=== PATIENT | male | born 1965 | race Hispanic/Latino ===

== ENCOUNTER 2017-03-23 07:35 | Emergency (ER) | payer OTHER ==
[2017-03-23 08:04] LABS: Basophils % (Auto) 1.1 % (0.0-1.8); Eosinophils % (Auto) 6.4 % (0.0-4.3); Hematocrit 46.9 % (35.5-45.6); Hemoglobin 15.4 gm/dl (11.8-15.2); Mean Corpuscular HGB Conc 33 % (32-34); Mean Corpuscular Hemoglobin 31 pg (28-32); Mean Corpuscular Volume 94 fl (84-94); Platelet Count 231 K/mm3 (140-440); Red Blood Count 4.98 M/mm3 (3.65-5.03); Red Cell Distribution Width 14.8 % (13.2-15.2); White Blood Count 7.2 K/mm3 (4.5-11.0)
[2017-03-23 08:24] LABS: Anion Gap 22 mmol/L; BUN/Creatinine Ratio 13; Blood Urea Nitrogen 9 mg/dL (9-20); Calcium 8.7 mg/dL (8.4-10.2); Carbon Dioxide 25 mmol/L (22-30); Chloride 95.3 mmol/L (98-107); Glucose 90 mg/dL (75-100); Potassium 4.1 mmol/L (3.6-5.0); Sodium 138 mmol/L (137-145)
[2017-03-23 08:26] LABS: Urine Drugs of Abuse Note Disclamer
[2017-03-23 08:46] LABS: RBC,Urine < 1.0 /HPF (0.0-6.0); WBC,Urine < 1.0 /HPF (0.0-6.0)
[2017-03-23 08:59] LABS: Bilirubin,Urine NEG (Negative); Blood,Urine NEG (Negative); Ketones,Urine NEG (Negative); Leukocyte Esterase,Urine NEG (Negative); Nitrite,Urine NEG (Negative); Protein,Urine <15 mg/dL mg/dL (Negative); Urobilinogen,Urine < 2.0 mg/dL (<2.0)
[2017-03-23] MEDS ORDERED: ATIVAN IV PRN ×2 (09:43)
--- NOTE | 2017-03-23 09:43 | Emergency Department Report ---
HPI - General Chief Complaint: Psych Time Seen by Provider: 03/23/17 08:55 - HPI HPI: This is a 51-year-old male presents to the emergency department with complaint of depression and suicidal ideations. The patient says that he has "lost everything" and has been having trouble with his job, finances, fiance, and his alcohol addiction. He did drink last night but does not appear currently intoxicated. He denies any diagnosed psychiatric history but does have history of some depression and suicidal ideations in the past as well related to his drinking. He does appear as if he would like to get some help with this. He denies any past medical history. He does say that he has some history of withdrawal symptoms from alcohol but has never had delirium tremens. ED Past Medical Hx - Past Medical History Previous Medical History?: No - Surgical History Past Surgical History?: Yes Additional Surgical History: chest tube - Social History Smoking Status: Current Every Day Smoker Substance Use Type: Alcohol - Medications Home Medications: Home Medications Medication Instructions Recorded Confirmed Last Taken Type HYDROcodone/APAP 5-325 [[place] 1 each PO Q6HR PRN #16 tablet 12/31/15 Unknown Rx 5/325] Ibuprofen [Motrin 800 MG tab] 800 mg PO Q8HR PRN #30 tablet 12/31/15 Unknown Rx ED Review of Systems ROS: Stated complaint: ETOH USE, SUICIDAL Other details as noted in HPI Comment: All other systems reviewed and negative Constitutional: denies: chills, fever Eyes: denies: eye pain, eye discharge, vision change ENT: denies: ear pain, throat pain Respiratory: denies: cough, shortness of breath, wheezing Cardiovascular: denies: chest pain, palpitations Gastrointestinal: denies: abdominal pain, nausea, diarrhea Genitourinary: denies: urgency, dysuria Musculoskeletal: denies: back pain, joint swelling, arthralgia Skin: denies: rash, lesions Neurological: denies: headache, weakness, paresthesias Psychiatric: depression, suicidal thoughts. denies: auditory hallucinations, visual hallucinations, homicidal thoughts Physical Exam - Physical Exam Vital Signs: Vital Signs 03/23/17 03/23/17 07:45 09:32 Temperature 97.7 F 98.2 F Pulse Rate 89 104 H Respiratory 20 18 Rate Blood Pressure 111/75 Blood Pressure 112/51 [Right] O2 Sat by Pulse 98 97 Oximetry Physical Exam: GENERAL: The patient is well-developed well-nourished. HENT: Normocephalic. Atraumatic. Patient has moist mucous membranes. EYES: Extraocular motions are intact. Pupils equal reactive to light bilaterally. NECK: Supple. Trachea is midline. CHEST/LUNGS: Clear to auscultation. There is no respiratory distress noted. HEART/CARDIOVASCULAR: Regular. There is no tachycardia. There is no gallop rub or murmur. ABDOMEN: Abdomen is soft, nontender. Patient has normal bowel sounds. There is no abdominal distention. SKIN: Skin is warm and dry. NEURO: The patient is awake, alert, and oriented. The patient is cooperative. The patient has no focal neurologic deficits. The patient has normal speech. MUSCULOSKELETAL: There is no tenderness or deformity. There is no limitation range of motion. There is no evidence of acute injury. PSYCH: Patient has a flat affect. ED Course Vital Signs 03/23/17 03/23/17 07:45 09:32 Temperature 97.7 F 98.2 F Pulse Rate 89 104 H Respiratory 20 18 Rate Blood Pressure 111/75 Blood Pressure 112/51 [Right] O2 Sat by Pulse 98 97 Oximetry ED Medical Decision Making - Lab Data Result diagrams: 03/23/17 07:49 03/23/17 07:49 - Medical Decision Making 51-year-old male with a history of alcoholism presents with some depression and suicidal ideations. Despite his elevated blood alcohol level at this time, the patient does not appear acutely intoxicated. He does have a history of withdrawals but no history of delirium tremens. He will be given IV fluids with banana bag and placed on the withdrawal protocol. He has been made a 1013 secondary to the suicidal ideations. The rest of his labs are mostly unremarkable. We will continue to monitor for any possible serious withdrawal symptoms that would require medical admission but at this time he does appear medically cleared for a psychiatric facility that can handle alcoholism and detox. Vitals stable throughout ED course. - Differential Diagnosis depression, substance abuse, bipolar disorder, schizophrenia Critical Care Time: No Critical care attestation.: If time is entered above; I have spent that time in minutes in the direct care of this critically ill patient, excluding procedure time. ED Disposition Clinical Impression: Alcohol abuse, Suicidal ideations Alcohol dependence Qualifiers: Substance use status: unspecified alcohol-induced disorder Qualified Code(s): F10.29 - Alcohol dependence with unspecified alcohol-induced disorder Depression Qualifiers: Depression Type: unspecified Qualified Code(s): F32.9 - Major depressive disorder, single episode, unspecified Disposition: [id number] PSY HOSP/PSY UNIT Is pt being admited?: No Condition: Stable Time of Disposition: 11:47
[2017-03-23] MEDS: VITAMIN B-1 100 MG, FOLVITE 1 MG, INFUVITE 10 ML in NACL 0.9% 1000 ML 1,000 ML IV ONE ×2 (10:35→15:42)
[2017-03-24] MEDS: ATIVAN IV PRN ×2 (14:44→21:16)
--- NOTE | 2017-03-25 12:24 | Progress Note ---
Subjective - Reason for Consult Consult date: 03/25/17 Reason for consult: Psychiatry Follow-up - Chief Complaint Chief complaint: "I want help" his is a 51-year-old male presents to the emergency department with complaint of depression and suicidal ideations. The original psy consult was completed yesterday on this patient, this is a follow-up. Today patient is calm and cooperative, but withdrawn during the assessment. He stated being "depressed " because he want to stop drinking alcohol (etoh) and life stressors. He stated that he have lost a lot in life, and currently living in a hotel. He stated struggling with suicide thoughts, but denies SI's with a plan. He stated that he been drinking alcohol (etoh) for several years. He stated that he used to drink for recreational use, but now he drink to ease his mind" the past 6 months. He reports times of sadness and being worthless. He stated attending multiple rehab services for alcohol, but relapsed once back in the community. He denies sleep disturbance and a poor appetite. He reports smoking marijuana for recreational use. He denies SI/HI's and AVH's. Mental Status Exam - Vital signs Last Vital Signs Temp 98.1 F 03/24/17 21:17 Pulse 93 H 03/24/17 21:17 Resp 20 03/24/17 21:17 BP 138/92 03/24/17 21:17 Pulse Ox 97 03/24/17 21:17 - Exam Narrative exam: MSE: Appearance: calm, cooperative Behavior: regular eye contact Speech: regular rate and tone Mood: "depressed" withdrawn Affect: flat Thought Process: circumstantial Thought Content: denies SI/HI's and AVH's Motor Activity: ambulatory Cognition: A/O x3 Insight: variable Judgment: variable Assessment and Plan Impression: MDD severe type. Alcohol Use DO. Substance Use DO (marijuana). Today patient is calm and cooperative, but withdrawn during the assessment. Alcohol serum on admission 0.19. Patient experiencing mild to moderate tremors. DDx: R/O Bipolar, R/O Alcohol Induced Mood DO Recommendation/Plan: The initial psy consult will be completed within 24 hours. Evaluate 1013 in 24 hours to determine proper dispo. Continue CIWA. Start Zoloft 50 mg PO daily for depression. Discussed possible suicidality/medication induced wilder with patient reference Zoloft. Discussed with the patient the importance to abstain from alcohol consumption and recreational drug use.
[2017-03-25] MEDS: ZOLOFT PO SCH (12:49)
[2017-03-25] MEDS: ATIVAN IV PRN (22:00)
[2017-03-26] MEDS: ZOLOFT PO SCH (10:28)
--- NOTE | 2017-03-26 10:42 | Progress Note ---
Subjective - Reason for Consult Consult date: 03/26/17 Reason for consult: Psychiatry Follow-up - Chief Complaint Chief complaint: "When can I leave" This is a 51-year-old male presents to the emergency department with complaint of depression and suicidal ideations. Today patient is calm and cooperative during the assessment. He stated that he would attend AA sessions along with outpatient psy/rehab services once discharged. He denies SI/HI's and AVH's. He denies any side effects of his medications. Mental Status Exam - Vital signs Last Vital Signs Temp 97.9 F 03/25/17 22:00 Pulse 98 H 03/25/17 22:00 Resp 18 03/25/17 22:00 BP 142/78 03/25/17 22:00 Pulse Ox 98 03/25/17 22:00 - Exam Narrative exam: MSE: Appearance: calm, cooperative Behavior: regular eye contact Speech: regular rate and tone Mood: "better" Affect: congruent to mood Thought Process: linear Thought Content: denies SI/HI's and AVH's Motor Activity: ambulatory Cognition: A/O x3 Insight: fair Judgment: fair Assessment and Plan Impression: MDD severe type. Alcohol Use DO. Substance Use DO (marijuana). Today patient is calm and cooperative during the assessment. Alcohol serum on admission 0.19. Patient experiencing mild tremors. DDx: R/O Bipolar, R/O Alcohol Induced Mood DO Recommendation/Plan: Evaluate 1013 in 24 hours to determine proper dispo. Recommend CIWA protocol with PO Ativan. Continue Zoloft 50 mg PO daily for depression. Discussed possible suicidality/medication induced wilder with patient reference Zoloft. Discussed with the patient the importance to abstain from alcohol consumption and recreational drug use.
[2017-03-26] MEDS ORDERED: ATIVAN ONE (13:56)
[2017-03-26] MEDS ORDERED: ATIVAN PO ONE (14:50)
[2017-03-27] MEDS: ZOLOFT PO SCH (11:23)
[2017-03-28 08:59] VITALS: BP 112/83
--- NOTE | 2017-03-28 10:38 | Progress Note ---
Subjective - Reason for Consult Consult date: 03/28/17 Reason for consult: Psychiatry Follow-up - Chief Complaint Chief complaint: "I can think clearly now" This is a 51-year-old male presents to the emergency department with complaint of depression and suicidal ideations. Today patient is calm and cooperative during the assessment. He stated that he want to get back to work and address his alcohol/substance abuse issues by going to rehab. He denies SI/ HI's and AVH's. He denies any side effects of his medication. Mental Status Exam - Vital signs Last Vital Signs Temp 98.0 F 03/28/17 08:57 Pulse 94 H 03/28/17 08:57 Resp 20 03/28/17 09:00 BP 112/83 03/28/17 08:57 Pulse Ox 98 03/28/17 09:00 - Exam Narrative exam: MSE: Appearance: calm, cooperative Behavior: regular eye contact Speech: regular rate and tone Mood: "well" Affect: congruent to mood Thought Process: linear Thought Content: denies SI/HI's and AVH's Motor Activity: ambulatory Cognition: A/O x3 Insight: fair Judgment: fair Assessment and Plan Impression: MDD severe type. Alcohol Use DO. Substance Use DO (marijuana). Today patient is calm and cooperative during the assessment. No acute withdrawals noted (etoh). DDx: R/O Bipolar, R/O Alcohol Induced Mood DO Recommendation/Plan: Rescind 1013. Continue Zoloft 50 mg PO daily for depression. Discussed possible suicidality/medication induced wilder with patient reference Zoloft. Discussed with the patient the importance to abstain from alcohol consumption and recreational drug use. Patient given outpatient/ rehab services for [facility].
[2017-03-28] MEDS: ZOLOFT PO SCH (11:05)
== END 2017-03-28 16:15 ==
LOC: EEVIPCON 07:35 → ED 07:35
DX: F32.9 Major depressive disorder, single episode, unspecified (principal); F10.10 Alcohol abuse, uncomplicated; F17.210 Nicotine dependence, cigarettes, uncomplicated
CPT/HCPCS: 36415; 80048; 80307; 81001; 85025; 96365; 96366; 96375; 99285; G0480; J2060; J3411; J7030; 80320